=== PATIENT | male | born 1950 | race Hispanic/Latino ===

== ENCOUNTER 2024-07-28 05:52 | Day surgery (SDC) | payer BC ==
[2024-07-27 08:31] LABS: HEMATOCRIT 40.4 % (42-54); MEAN CORPUSCULAR HEMOGLOBIN 31.2 pg (27.0-33.0); MEAN CORPUSCULAR HGB CONC 33.2 g/dL (32.0-36.0); MEAN CORPUSCULAR VOLUME 94.2 fL (79-99); RED BLOOD CELL COUNT(AUTO) 4.29 MIL/uL (4.50-6.20); RED CELL DISTRIBUTION WIDTH 15.1 % (11.0-15.5); WHITE BLOOD COUNT (AUTO) 4.3 K/uL (4.8-10.8)
[2024-07-27 08:35] VITALS: BP 142/82; PULSE 74; RESP 18; TEMP 97.2
[2024-07-27 08:37] LABS: ADD UA MICROSCOPIC YES; APPEARANCE,URINE CLEAR (CLEAR); BILIRUBIN,URINE NEGATIVE (NEGATIVE); COLOR,URINE LIGHT-YELLOW (YELLOW); GLUCOSE, URINE (UA) NEGATIVE (NEGATIVE); KETONES,URINE NEGATIVE (NEGATIVE); LEUKOCYTE ESTERASE ,URINE NEGATIVE Leu/uL (NEGATIVE); NITRATE,URINE NEGATIVE (NEGATIVE); OCCULT BLOOD,URINE NEGATIVE (NEGATIVE); PH,URINE 6.5 (5.0-8.0); PROTEIN,URINE 10 mg/dL (NEGATIVE); UROBILINOGEN,URINE 0.2 mg/dL (0.2-1.0)
[2024-07-27 08:42] LABS: INR <= 0.93 (0.85-1.15); PROTHROMBIN TIME 9.8 SEC (9.6-11.6)
[2024-07-27 08:43] LABS: MUCUS,URINE RARE LPF (None Seen); SQUAMOUS EPITHELIAL CELL,UR RARE /HPF (0-2); WBC,URINE 0-1 /HPF (0-1)
[2024-07-27 08:44] LABS: PARTIAL THROMBOPLASTIN TIME 25.5 SEC (26.3-35.5)
[2024-07-27 08:46] LABS: ALBUMIN 3.8 g/dL (3.5-5.0); BILIRUBIN,TOTAL 0.6 mg/dL (0.2-1.0); CREATININE 1.2 mg/dL (0.5-1.3); POTASSIUM 4.3 mmol/L (3.5-5.1); TOTAL PROTEIN, SERUM 7.6 g/dL (6.0-8.3)
[~2024-07-28] VITALS: Ht 172.7 cm; Wt 73.9 kg
[2024-07-28] VITALS (16 sets, daily range): BP systolic 85–137; BP diastolic 44–91; PULSE 64–83; RESP 9–16; TEMP 97–98.1
[~2024-07-28 05:52] MED LIST: DOXA-15 PO; FINA5TAB41 PO; LEVO25TA54 PO
[2024-07-28] MEDS: LACTATED RINGERS 1000ML 1,000 ML IV ONE (06:43)
[2024-07-28] MEDS ORDERED: LIDOCAINE PF 100MG/5ML (2%) SYRINGE 5ML ONE (07:15)
[2024-07-28] MEDS ORDERED: dexaMETHasone SOD PHOSPHATE 10MG/ML 1ML VIAL ONE (07:15)
[2024-07-28] MEDS ORDERED: NEOSTIGMINE METHYLSULFATE 1MG/ML IV ONE (07:16)
[2024-07-28] MEDS ORDERED: proPOFol 10 MG/ML 20ML VIAL IV ONE (07:16)
[2024-07-28] MEDS ORDERED: ondanSETRON 4MG INJ ONE (07:16)
[2024-07-28] MEDS ORDERED: SUCCINYLCHOLINE CHLORIDE 20 MG/ML 10 ML VIAL ONE (07:16)
[2024-07-28] MEDS ORDERED: GLYCOPYRROLATE 0.2 MG/ML 5 ML VIAL ONE (07:16)
[2024-07-28] MEDS ORDERED: MIDAZOLAM HCL 1 MG/ML 2ML VIAL ONE (07:16)
[2024-07-28] MEDS ORDERED: rocuRONium bROMide 10MG/1ML 5ML VL ONE (07:17)
[2024-07-28] MEDS ORDERED: FENTanyl CITRate PF 50 MCG/1 ML 2ML VIAL ONE (07:17)
[2024-07-28] MEDS: ZOSYN 3.375GM+NS 50ML 50 ML ONE (07:31)
[2024-07-28] MEDS: IOHEXOL-350 75 ML VIAL IV ONE (07:43)
[2024-07-28] MEDS ORDERED: IOHEXOL-350 50ML VIAL IV ONE (08:12)
[2024-07-28] MEDS ORDERED: AMOX-426 PO (09:41)
[2024-07-28] MEDS ORDERED: ACET-2743 PO (09:41)
== END 2024-07-28 10:05 | disposition home or self-care (01) ==
LOC: DAH 05:52
PROVIDERS: ATTEND Urology
DX: N30.21 Other chronic cystitis with hematuria (principal); Z98.890 Other specified postprocedural states; Z79.01 Long term (current) use of anticoagulants
CPT/HCPCS: 80053; 85027; 85610; 85730; 87086; 84153; 81001; 36415; 71046; 93005; 52204; 88305; 74420; 52005; A6260; A4663; J7120 ×2; C1758 ×2; J3010; J1100; J0330; J3490 ×2; J2003; J2250; J2704; J2405; J2710; J2543; Q9967 ×2; A4358; C1769; A4930; A4215; A4223; A6251; A4222; A4221; A4600